=== PATIENT | male | born 1950 | race Caucasian/White ===

== ENCOUNTER 2021-03-23 02:04 | Inpatient (IN) ==
[2021-03-23] MEDS ORDERED: dilTIAZem HCl 5 MG/ML 5 ML VIAL IV STA (02:29)
--- NOTE | 2021-03-23 02:44 | Emergency Department Note ---
Impression & Plan Atrial flutter with rapid ventricular response Admission to the [facility] ED Provider Note NAME: SCOTTY DILLON AGE: 70 SEX: M ARRIVES VIA: Walk-In INFORMANT: Patient ED PROVIDER(S): Pratibha Mitchell DO CHIEF COMPLAINT: Rapid pulse and nausea PLAN: Disposition: Admission to the [facility] Condition: Stable MEDICAL DECISION MAKING: This is a 70-year-old male patient who presents to the emergency department with a rapid pulse and nausea. She was noted to be in atrial flutter with a rapid ventricular response. The patient was given a dose of IV Cardizem which seemed to control the patient's rate. Laboratory studies were obtained. Chest x-ray was performed and was unremarkable. Patient's nausea was well controlled. I discussed the case with the [facility] and they will evaluate for further management. Triage Nursing notes reviewed and agree with them. Vital Signs: reviewed and remarkable for tachycardia Differential diagnosis: Cardiac dysrhythmia, electrolyte abnormality, cardiac ischemia ER treatment provided: IV Cardizem, IV Zofran Diagnostics interpreted by me: ECG: Atrial flutter at a rate of 116 with PVCs. There is no ST segment elevation or signs of ischemia. QTC is 386 ms. Cardiac Monitoring: None Laboratory studies: See below Imaging studies: As per my interpretation Chest x-ray: No acute pulmonary infiltrates or consolidations HPI: 70/M arrives for evaluation of palpitations. The patient states that he awoke around 1:15 AM with significant nausea and rapid pulse. Patient initially thought that his blood sugar might be low but it was 90. Patient has a very remote history of atrial flutter from approximately 20 years ago where he was hospitalized for approximately 4 days of medications and then had to be cardioverted. Patient denies anything out of the ordinary over the past couple days which could have led to this. ROS: See above HPI for pertinent positives & negatives. A total of 10 systems reviewed and were otherwise negative. PAST MEDICAL HISTORY:Type 2 diabetes; one other previous episode of A. fib with RVR that required cardioversion PAST SURGICAL HISTORY:See Below FAMILY HISTORY:See Below SOCIAL HISTORY:See Below HOME MEDICATIONS:See Below ALLERGIES:See Below VITALS:See Below PHYSICAL EXAMINATION: HEENT: Head - normocephalic and atraumatic. Pupils are equal, round, and reactive to light. Extraocular eye muscles are intact, and sclera are anicteric. Nose - moist nasal mucosa without discharge. Mouth - moist buccal mucosa. Oropharynx is nonerythematous and there is no tonsillar exudate or edema noted. Neck: Supple; no JVD, nuchal rigidity, cervical lymphadenopathy, or auscultated bruits. Heart: Irregularly irregular rhythm with a tachycardic rate Lungs: Clear to auscultation bilaterally with no wheezes, rales, or rhonchi. Abdomen: Soft, completely nontender, nondistended, with good bowel sounds. There are no palpable pulsatile masses or hepatosplenomegaly. There is no guarding, rigidity, or rebound noted. Extremities: No evidence of cyanosis, clubbing, or edema. There are easily palpable peripheral pulses. Skin: warm and dry with good turgor and no rashes. ED COURSE: Times/Reassessments: 0220: The patient was evaluated in room B7. A complete history and physical was performed. An order was placed for continuous cardiac monitoring. The patient is in in a flutter at a rate of 122. An IV lock was initiated and labs are drawn as above. A twelve-lead EKG was obtained. The patient was given 20 mg of IV Cardizem. A portable chest x-ray was perform ed. I discussed the case with the [facility] hospitalist and they will evaluate for further management. I have personally spent greater than 30 minutes of critical care time in the direct management of this patient. This includes bedside care, interpretation of diagnostic studies, and testing, discussion with consultants, patient, and family members, and other required patient management activities. This 30 minutes is in excess of all separately billable procedures. Pratibha Mitchell DO Past Med/Surg History Medical History (Updated 03/23/21 @ 22:12 by Pratibha Mitchell DO) Diabetes mellitus, type 2 Hearing loss in left ear History of atrial fibrillation (~04/26/10) hx of 11 yrs ago--had cardiac cath/RANDAL and cardioversion (successful) no further issues with a-fib History of gout Hyperlipidemia Ocular migraine Surgical History History of cardiac cath (~04/26/10) @ [facility] d/t a-fib--no stents placed, went for RANDAL and then cardioversion right after History of cardioversion (~04/26/10) History of colonoscopy with polypectomy History of root canal procedure History of transesophageal echocardiography (RANDAL) for a-fib Family History Father Family history of diabetes mellitus Other No family history of adverse response to anesthesia Social History (System 01/23/20 @ 09:29 by Vickie Rodriguez) Smoking Status: Never smoker Second Hand Exposure: Yes (parents smoked); Hx Alcohol Use: Yes Alcohol type: beer Hx Substance Use: No Preferred Language: Thai Communication Ability: Effective Lab Intern Required: No Beliefs That Will Affect Care: None Current Living Situation: Spouse Feels Safe at Home: Yes Assistive Devices: Glasses Allergies Allergies Allergy/AdvReac Type Severity Reaction Status Date / Time No Known Allergies Allergy Verified 03/23/21 02:26 Home Meds Home Medications Medication Instructions Recorded Confirmed aspirin 81 mg chewable tablet 81 mg PO QA 09/10/20 03/23/21 (Aspirin Childrens) atorvastatin 20 mg tablet 20 mg PO QAM 09/10/20 03/23/21 empagliflozin 25 mg tablet 12.5 mg PO QAM 09/10/20 03/23/21 (Jardiance) insulin glargine 100 unit/mL 28 unit SUBCUT HS 09/10/20 03/23/21 subcutaneous solution (Lantus U-100 Insulin) lisinopril 10 mg tablet 10 mg PO QAM 09/10/20 03/23/21 metformin 500 mg tablet 500 mg PO BID 09/10/20 03/23/21 multivitamin 1 tab PO QAM 09/10/20 03/23/21 Previous Rx's Medication Instructions Recorded diltiazem HCl 30 mg tablet 30 mg PO TID #90 tab 03/23/21 diltiazem HCl 30 mg tablet 30 mg PO TID 30 Days #90 tab 03/23/21 rivaroxaban 20 mg tablet (Xarelto) 20 mg PO DAILY #30 tab 03/23/21 rivaroxaban 20 mg tablet (Xarelto) 20 mg PO DAILY #30 tab 03/23/21 Results & Data (ED) Vital Signs Vital Signs - 24 hr 03/23/21 02:06 03/23/21 02:30 03/23/21 02:40 Temperature 36.7 C Temperature Source Temporal Artery Scan Pulse Rate 128 H 125 H 99 H Pulse Rate from SpO2 Sensor 123 H 102 H Respiratory Rate 19 15 13 Respiratory Effort / Characteristics Non-Labored Respiratory Depth Normal Blood Pressure 139/98 128/82 95/75 L Blood Pressure [Right Arm] Blood Pressure Mean 111 97 81 Blood Pressure Mean [Right Arm] Pulse Oximetry 99 98 95 Oxygen Delivery Method Room Air Sepsis Recent Fever Within 48 Hours No Sepsis New/Unexplained Change in Mental Status N/A Sepsis Action Taken by Nursing No Action Required 03/23/21 02:42 03/23/21 02:44 03/23/21 02:50 Temperature Temperature Source Pulse Rate 93 H Pulse Rate from SpO2 Sensor 92 H Respiratory Rate 22 Respiratory Effort / Characteristics Respiratory Depth Blood Pressure 107/72 Blood Pressure [Right Arm] 109/76 Blood Pressure Mean 83 Blood Pressure Mean [Right Arm] 87 Pulse Oximetry 95 Oxygen Delivery Method Room Air Sepsis Recent Fever Within 48 Hours Sepsis New/Unexplained Change in Mental Status Sepsis Action Taken by Nursing 03/23/21 03:00 03/23/21 03:10 03/23/21 03:20 Temperature Temperature Source Pulse Rate 98 H 93 H 103 H Pulse Rate from SpO2 Sensor 96 H 92 H 101 H Respiratory Rate 16 17 16 Respiratory Effort / Characteristics Respiratory Depth Blood Pressure 118/74 108/69 119/79 Blood Pressure [Right Arm] Blood Pressure Mean 88 82 92 Blood Pressure Mean [Right Arm] Pulse Oximetry 94 94 98 Oxygen Delivery Method Room Air Room Air Sepsis Recent Fever Within 48 Hours Sepsis New/Unexplained Change in Mental Status Sepsis Action Taken by Nursing 03/23/21 03:30 03/23/21 04:00 03/23/21 04:30 Temperature Temperature Source Pulse Rate 103 H 98 H 113 H Pulse Rate from SpO2 Sensor 100 H 102 H 118 H Respiratory Rate 15 12 17 Respiratory Effort / Characteristics Respiratory Depth Blood Pressure 122/79 137/90 149/86 H Blood Pressure [Right Arm] Blood Pressure Mean 93 105 107 Blood Pressure Mean [Right Arm] Pulse Oximetry 97 93 97 Oxygen Delivery Method Room Air Room Air Sepsis Recent Fever Within 48 Hours Sepsis New/Unexplained Change in Mental Status Sepsis Action Taken by Nursing Laboratory Data Result diagrams: 03/23/21 02:15 03/23/21 09:45 Lab Results 03/23/21 03/23/21 03/23/21 Range/Units 02:15 02:15 03:25 WBC 9.48 (4.8-10.8) K/uL RBC 4.86 (4.7-6.1) M/uL Hgb 15.8 (14.0-18.0) g/dL Hct 46.7 (42-52) % MCV 96.1 (80-100) fL MCH 32.5 (25-34) pg MCHC 33.8 (32-36) g/dL RDW Std Deviation 46.1 (36.4-46.3) fL RDW Coeff of Kyra 13.2 (11.5-14.5) % Plt Count 201 (130-400) K/uL MPV 10.3 (7.4-10.4) fL Immature Gran % (Auto) 0.2 % Neut % (Auto) 63.4 % Lymph % (Auto) 26.8 % [place] % (Auto) 7.1 % Eos % (Auto) 2.3 % Baso % (Auto) 0.2 % Neut # (Auto) 6.01 (1.4-6.5) K/uL Lymph # (Auto) 2.54 (1.2-3.4) K/uL [place] # (Auto) 0.67 H (0.11-0.59) K/uL Eos # (Auto) 0.22 (0-0.5) K/uL Baso # (Auto) 0.02 (0-0.2) K/uL Immature Gran # (Auto) 0.02 (0.00-0.02) K/uL Sodium 137 (136-145) mmol/L Potassium 4.2 (3.5-5.1) mmol/L Chloride 107 (98-107) mmol/L Carbon Dioxide 28 (21-32) mmol/L Anion Gap 2.0 L (3-11) BUN 23 H (7-18) mg/dl Creatinine 1.36 (0.6-1.4) mg/dl Est Cr Clr Drug Dosing 60.4 ml/min Est GFR ( Amer) 60.7 ml/min Est GFR (Non-Af Amer) 52.3 ml/min BUN/Creatinine Ratio 16.6 (10-20) Glucose 90 (70-99) mg/dl Calcium 9.1 (8.5-10.1) mg/dl Magnesium 2.4 (1.8-2.4) mg/dl Total Bilirubin 0.5 (0.2-1) mg/dl AST 15 (15-37) U/L ALT 28 (12-78) U/L Alkaline Phosphatase 52 (45-117) U/L Troponin I < 0.015 (0-0.045) ng/ml Total Protein 7.1 (6.4-8.2) gm/dl Albumin 3.9 (3.4-5.0) gm/dl Globulin 3.2 (2.5-4.0) gm/dl Albumin/Globulin Ratio 1.2 (0.9-2) TSH 0.745 (0.300-4.500) uIu/ml COVID-19 Eval Order Covid19 at [facility] SARS-CoV-2 (PCR) (Negative) 03/23/21 Range/Units 03:25 WBC (4.8-10.8) K/uL RBC (4.7-6.1) M/uL Hgb (14.0-18.0) g/dL Hct (42-52) % MCV (80-100) fL MCH (25-34) pg MCHC (32-36) g/dL RDW Std Deviation (36.4-46.3) fL RDW Coeff of Kyra (11.5-14.5) % Plt Count (130-400) K/uL MPV (7.4-10.4) fL Immature Gran % (Auto) % Neut % (Auto) % Lymph % (Auto) % [place] % (Auto) % Eos % (Auto) % Baso % (Auto) % Neut # (Auto) (1.4-6.5) K/uL Lymph # (Auto) (1.2-3.4) K/uL [place] # (Auto) (0.11-0.59) K/uL Eos # (Auto) (0-0.5) K/uL Baso # (Auto) (0-0.2) K/uL Immature Gran # (Auto) (0.00-0.02) K/uL Sodium (136-145) mmol/L Potassium (3.5-5.1) mmol/L Chloride (98-107) mmol/L Carbon Dioxide (21-32) mmol/L Anion Gap (3-11) BUN (7-18) mg/dl Creatinine (0.6-1.4) mg/dl Est Cr Clr Drug Dosing ml/min Est GFR ( Amer) ml/min Est GFR (Non-Af Amer) ml/min BUN/Creatinine Ratio (10-20) Glucose (70-99) mg/dl Calcium (8.5-10.1) mg/dl Magnesium (1.8-2.4) mg/dl Total Bilirubin (0.2-1) mg/dl AST (15-37) U/L ALT (12-78) U/L Alkaline Phosphatase (45-117) U/L Troponin I (0-0.045) ng/ml Total Protein (6.4-8.2) gm/dl Albumin (3.4-5.0) gm/dl Globulin (2.5-4.0) gm/dl Albumin/Globulin Ratio (0.9-2) TSH (0.300-4.500) uIu/ml COVID-19 Eval Order SARS-CoV-2 (PCR) NEGATIVE (Negative) Administered Medications Discontinued Medications Aspirin (Aspirin 81 Mg Ectab) 81 mg PO [facility] Stop: 04/22/21 08:59 Last Admin: 03/23/21 09:14 Dose: 81 mg Documented by: [id number] Atorvastatin Calcium (Atorvastatin 20 Mg Tab) 20 mg PO [facility] Stop: 04/22/21 08:59 Last Admin: 03/23/21 09:14 Dose: 20 mg Documented by: [id number] Diltiazem HCl (Diltiazem Hcl 5 Mg/Ml 5 Ml Vial) 20 mg IV NOW STA Stop: 03/23/21 02:30 Last Admin: 03/23/21 02:36 Dose: 20 mg Documented by: [id number] Cosigned by: [id number] Diltiazem HCl (Diltiazem Hcl 30 Mg Tab) 30 mg PO NOW STA Stop: 03/23/21 05:29 Last Admin: 03/23/21 05:37 Dose: 30 mg Documented by: [id number] Diltiazem HCl (Diltiazem Hcl 30 Mg Tab) 30 mg PO TID SAMANTHA Stop: 04/22/21 10:59 Last Admin: 03/23/21 12:01 Dose: 30 mg Documented by: [id number] Enoxaparin Sodium (Enoxaparin 100 Mg/1ml Syr) 90 mg SQ Q12 SAMANTHA Stop: 04/22/21 07:29 Last Admin: 03/23/21 09:13 Dose: 90 mg Documented by: [id number] Sodium Chloride (Nss 1000ml) 500 mls @ 999 mls/hr IV .Q31M ONE Stop: 03/23/21 04:33 Last Infusion: 03/23/21 04:45 Dose: 0 mls/hr Documented by: [id number] Admin: 03/23/21 04:10 Dose: 999 mls/hr Documented by: [id number] Sodium Chloride (Nss) 500 mls @ 125 mls/hr IV .Q4H SAMANTHA Stop: 04/22/21 04:14 Last Admin: 03/23/21 12:01 Dose: 125 mls/hr Documented by: [id number] Infusion: 03/23/21 12:01 Dose: 125 mls/hr Documented by: [id number] Admin: 03/23/21 09:14 Dose: 125 mls/hr Documented by: [id number] Infusion: 03/23/21 08:45 Dose: 125 mls/hr Documented by: [id number] Admin: 03/23/21 04:45 Dose: 125 mls/hr Documented by: [id number] Miscellaneous (Jardiance: Order Awaiting Action) 1 ea N/A QS SAMANTHA Stop: 04/22/21 07:59 Last Admin: 03/23/21 07:29 Dose: Not Given Documented by: [id number] Ondansetron HCl (Ondansetron Inj 2 Mg/Ml 2 Ml Vial) 4 mg IV NOW STA Stop: 03/23/21 02:47 Last Admin: 03/23/21 06:42 Dose: Not Given Documented by: [id number] Discharge Plan Visit Data Chief Complaint: Arrhythmia/Palpitations Stated Complaint: FAST PULSE,NAUSEA,FLUSHED ED Provider: Pratibha Mitchell Discharge Problem: Atrial flutter with rapid ventricular response Patient Disposition: Admitted As Inpatient Discharge Instructions Interventions: ED Discharge Assessment Last Done: 03/23/21 06:00
[2021-03-23] MEDS ORDERED: ONDANSETRON INJ 2 MG/ML 2 ML VIAL IV STA (02:46)
[2021-03-23 02:49] LABS: Basophils # (auto) 0.02 K/uL (0-0.2); Basophils % (auto) 0.2 %; Eosinophils # (auto) 0.22 K/uL (0-0.5); Eosinophils % (auto) 2.3 %; Hematocrit (blood only) 46.7 % (42-52); Hemoglobin 15.8 g/dL (14.0-18.0); Immature Granulocytes # (auto) 0.02 K/uL (0.00-0.02); Immature Granulocytes % (auto) 0.2 %; Lymphocytes # (auto) 2.54 K/uL (1.2-3.4); Lymphocytes % (auto) 26.8 %; Mean Corpuscular Hemoglobin 32.5 pg (25-34); Mean Corpuscular Hgb Conc 33.8 g/dL (32-36); Mean Corpuscular Volume 96.1 fL (80-100); Mean Platelet Volume 10.3 fL (7.4-10.4); Monocytes # (auto) 0.67 K/uL (0.11-0.59); Monocytes % (auto) 7.1 %; Neutrophils # (auto) 6.01 K/uL (1.4-6.5); Neutrophils % (auto) 63.4 %; Platelet Count 201 K/uL (130-400); RDW Coefficient of Variation 13.2 % (11.5-14.5); RDW Standard Deviation 46.1 fL (36.4-46.3); Red Blood Count 4.86 M/uL (4.7-6.1); White Blood Count 9.48 K/uL (4.8-10.8)
[2021-03-23 02:57] LABS: Alanine Aminotransferase 28 U/L (12-78); Albumin Level 3.9 gm/dl (3.4-5.0); Aspartate Aminotransferase 15 U/L (15-37); BUN Creatinine Ratio 16.6 (10-20); Blood Urea Nitrogen 23 mg/dl (7-18); Calcium 9.1 mg/dl (8.5-10.1); Carbon Dioxide 28 mmol/L (21-32); Chloride 107 mmol/L (98-107); Creatinine Clr Calc Pharmacy 60.4 ml/min; Est GFR (African American) 60.7 ml/min; Est GFR (Non-African American) 52.3 ml/min; Glucose 90 mg/dl (70-99); Magnesium 2.4 mg/dl (1.8-2.4); Potassium 4.2 mmol/L (3.5-5.1); Sodium 137 mmol/L (136-145)
[2021-03-23 03:08] LABS: Albumin Globulin Ratio 1.2 (0.9-2); Alkaline Phosphatase 52 U/L (45-117); Bilirubin,Total 0.5 mg/dl (0.2-1); Globulin 3.2 gm/dl (2.5-4.0); Thyroid Stimulating Hormone 0.745 uIu/ml (0.300-4.500); Total Protein 7.1 gm/dl (6.4-8.2); Troponin I < 0.015 ng/ml (0-0.045)
[2021-03-23] MEDS ORDERED: SODIUM CHLORIDE 0.9% 1000ML 500 ML IV ONE (04:03)
[2021-03-23] MEDS: SODIUM CHLORIDE 0.9% 500 ML IV SCH ×3 (04:45→12:01)
--- NOTE | 2021-03-23 05:17 | History & Physical Report ---
Date of Service March 23, 2021 Assessment & Plan (1) Atrial flutter: Plan: -Mr. Rubio is a 70 yo gentleman who is being admitted for management of atrial flutter. - Aflutter demonstrated on EKG - HR improved with Diltiazem 20mg IV - continue oral Diltazem 30mg q6 - etiology: uncertain. patient does not appear to be ill with an infection. TSH was not deranged. K was > 4, Mag was > 2. Cr of 1.36 (baseline Cr unknown) and mildly elevated BUN of 23 suggestive of mild dehydration. Patient did consume 2 alcoholic drinks earlier this evening, but this is not widely changed from baseline of 1 beer per night. - [id number] score of 2: will initiate anticoagulation with Lovenox 1mg/kg q12 to mitigate increased transient stroke risk - echo ordered - cards consult placed (2) Diabetes mellitus, type 2: Plan: - blood glucose 90 on admission - BG checks ACHS - continue home Lantus insulin and Jardiance - hold home metformin - continue high intensity statin - hold PIERCE while using Cardizem (allow for more blood pressure room when controlling HR) (3) Elevated BUN: Plan: - mildly elevated at 23 - suggestive of mild dehydration - 1 liter of NSS given in ED - trend BMP DVT ppx: Lovenox Diet: Heart healthy, carb consistent Dispo: Med/tele CodE: DNR/DNI, I discussed with jass cosme History of Present Illness Primary Care Provider: Katerine Montano PA-C Mr. Rubio is a 70 yo M who presented to the [facility] ED for evaluation of rapid heart beat. Leading up to this admission, he was in his usual state of health. He went to bed and awoke at 1:30am with a rapid heart rate. He did not experience any associated chest pain or SOB. He endorses a history of atrial flutter 20 years ago. He was hospitalized here, at [facility], for this problem. After about 4 days of medical therapy - he was ultimatley cardioverted. He briefly followed with a civil engineer's aide for a period of time afterwards, but eventually was discharged from their clinic, as he had been stable (without recurrent episodes) since his cardioversion. He is not on any rate control agent. He is not on a blood thinner. He denied any recent tick bites. He did have two alcoholic beverages at an event earlier this evening with his . Social Hx: Most of his medical care is via the [facility]. 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 He drinks ~ 1 beer per night (but not necessarily every night). In the ED, he was afebrile with a HR of 128. His BP was normal at 137/90 and he was breathing well on room air. His CBC was normal. K was 4.2, Mag was 2.4. Cr 1.36, BUN 23. TSH at 0.7. Trop undetectable. COVID 19 neg. EKG showing Aflutter at 111 bpm with occasional PVCs. CXR appears unremakable. He was given one dose of diltiazem 20mg, IV, 1 liter of NSS and a dose of zofran. Heart rate improved to 98 bpm. Allergies Allergy/AdvReac Type Severity Reaction Status Date / Time No Known Allergies Allergy Verified 03/23/21 02:26 Home Medications Medication Instructions Recorded Confirmed Type aspirin 81 mg chewable tablet 81 mg PO QAM 09/10/20 03/23/21 History (Aspirin Childrens) atorvastatin 20 mg tablet 20 mg PO QAM 09/10/20 03/23/21 History empagliflozin 25 mg tablet 12.5 mg PO QAM 09/10/20 03/23/21 History (Jardiance) insulin glargine 100 unit/mL 28 unit SUBCUT HS 09/10/20 03/23/21 History subcutaneous solution (Lantus U-100 Insulin) lisinopril 10 mg tablet 10 mg PO QAM 09/10/20 03/23/21 History metformin 500 mg tablet 500 mg PO BID 09/10/20 03/23/21 History multivitamin 1 tab PO QAM 09/10/20 03/23/21 History diltiazem HCl 30 mg tablet 30 mg PO TID #90 tab 03/23/21 Rx diltiazem HCl 30 mg tablet 30 mg PO TID 30 Days #90 tab 03/23/21 Rx rivaroxaban 20 mg tablet (Xarelto) 20 mg PO DAILY #30 tab 03/23/21 Rx rivaroxaban 20 mg tablet (Xarelto) 20 mg PO DAILY #30 tab 03/23/21 Rx Past Med/Surg History Medical History (Updated 03/23/21 @ 22:12 by Pratibha Mitchell DO) Diabetes mellitus, type 2 Hearing loss in left ear History of atrial fibrillation (~04/26/10) hx of 11 yrs ago--had cardiac cath/RANDAL and cardioversion (successful) no further issues with a-fib History of gout Hyperlipidemia Ocular migraine Surgical History History of cardiac cath (~04/26/10) @ [facility] d/t a-fib--no stents placed, went for RANDAL and then cardioversion right after History of cardioversion (~04/26/10) History of colonoscopy with polypectomy History of root canal procedure History of transesophageal echocardiography (RANDAL) for a-fib Family History Father Family history of diabetes mellitus Other No family history of adverse response to anesthesia Social History (System 01/23/20 @ 09:29 by Vickie Rodriguez) Smoking Status: Never smoker Second Hand Exposure: Yes (parents smoked); Hx Alcohol Use: Yes Alcohol type: beer Hx Substance Use: No Preferred Language: Nigerian Communication Ability: Effective Tech Brazer Tester Required: No Beliefs That Will Affect Care: None Current Living Situation: Spouse Feels Safe at Home: Yes Assistive Devices: Glasses Review of Systems Respiratory: no dyspnea Cardiovascular: no chest pain Physical Exam Constitutional: WD/WN, vitals as above cooperative; no acute distress Eyes: PERRL, conjunctivae normal, anicteric sclerae ENMT: external ear and nose normal, oropharynx normal Neck: normal visual inspection and trachea midline Respiratory: normal respiratory effort, lungs clear to auscultation no cough Cardiovascular: Rate/Rhythm: + tachycardic; + abnormal rhythm Heart Sounds: normal S1 and normal S2 Vessels: normal carotid upstroke Extremities: no pedal edema Gastrointestinal (Abdomen): normal bowel sounds, soft, nontender, no hepatosplenomegaly Musculoskeletal: Head/Neck/Chest: normocephalic and head atraumatic Skin: no rashes, warm and dry Neurologic: moves all extremities Psychiatric: A+Ox3, euthymic affect Results & Data Results & Data ([facility]) Vital Signs (Past 12 Hours) Vital Signs Temp Pulse Resp BP BP Pulse Ox 03/23/21 04:00 98 H 12 137/90 93 09/04/21 03:30 103 H 15 122/79 97 03/23/21 03:20 103 H 16 119/79 98 03/23/21 03:10 93 H 17 108/69 94 03/23/21 03:00 98 H 16 118/74 94 03/23/21 02:50 93 H 22 107/72 95 03/23/21 02:44 109/76 03/23/21 02:40 99 H 13 95/75 L 95 03/23/21 02:30 125 H 15 128/82 98 03/23/21 02:06 36.7 C 128 H 19 139/98 99 Supervising Physician Co-Signing Physician Notes Attending addendum: I have physically seen this patient, have supervised the medical residents activities, and agree with the H&P unless as otherwise noted. Assessment and Plan: Atrial flutter with RVR- The patient will be admitted to telemetry for serial cardiac enzymes, serial EKG's, cardiac rhythm monitoring and a 2-D echocardiogram with Dopplers. Improved rate control after diltiazem 20 mg IV given by the ED Placed on diltiazem 30 mg p.o. every 6 hours. Diltiazem 10 mg IV every 4 hours as needed heart rate greater than 110 Lovenox as noted Consult cardiology Diabetes mellitus- Place on Accu-Cheks before meals and at bedtime with NovoLog coverage per scale Continue Lantus insulin Hold Jardiance Remaining orders and notations as noted Resident Activity Tracking Resident Involvement: Resident Care Provided Care Provided: Adult Hospital Medicine
[2021-03-23] MEDS ORDERED: dilTIAZem HCL 30 MG TAB PO STA (05:28)
[2021-03-23] MEDS ORDERED: GLUCAGON FOR INJ 1 MG VIAL SQ PRN (05:47)
[2021-03-23] MEDS ORDERED: CARBOHYDRATES FOR HYPOGLYCEMIA PO PRN (05:47)
[2021-03-23] MEDS ORDERED: GLUCOSE 40% GEL 15 GM TUBE PO PRN (05:47)
[2021-03-23] MEDS ORDERED: DEXTROSE 50% 50 ML SYRINGE IV PRN (05:47)
[2021-03-23] MEDS ORDERED: GLUCOSE 10 TABS/TUBE PO PRN (05:47)
[2021-03-23] MEDS ORDERED: ENOXAPARIN 1 MG/KG SQ SCH (06:23)
[2021-03-23] MEDS ORDERED: ACETAMINOPHEN 325 MG TAB PO PRN (06:23)
[2021-03-23] MEDS ORDERED: POLYETHYLENE (MIRALAX) 17 GM PACK PO PRN (06:23)
[2021-03-23] MEDS ORDERED: ONDANSETRON INJ 2 MG/ML 2 ML VIAL IV PRN (06:23)
--- NOTE | 2021-03-23 06:45 | Hospitalist Progress Note ---
Date of Service March 23, 2021 Assessment & Plan (1) Atrial flutter: Plan: -Mr. Rubio is a 70 yo gentleman who is being admitted for management of atrial flutter. - Aflutter demonstrated on EKG - HR improved with Diltiazem 20mg IV - continue oral Diltazem 30mg q6 - etiology: uncertain. patient does not appear to be ill with an infection. TSH was not deranged. K was > 4, Mag was > 2. Cr of 1.36 (baseline Cr unknown) and mildly elevated BUN of 23 suggestive of mild dehydration. Patient did consume 2 alcoholic drinks earlier this evening, but this is not widely changed from baseline of 1 beer per night. - [id number] score of 2: will initiate anticoagulation with Lovenox 1mg/kg q12 to mitigate increased transient stroke risk - echo ordered - cards consult placed (2) Diabetes mellitus, type 2: Plan: - blood glucose 90 on admission - BG checks ACHS - continue home Lantus insulin and Jardiance - hold home metformin - continue high intensity statin - hold PIERCE while using Cardizem (allow for more blood pressure room when controlling HR) (3) Elevated BUN: Plan: - mildly elevated at 23 - suggestive of mild dehydration - 1 liter of NSS given in ED - trend BMP DVT ppx: Lovenox Diet: Heart healthy, carb consistent Dispo: Med/tele CodE: DNR/DNI, I discussed with jass cosme Admission and Anticipated Discharge Date Admission Date: March 23, 2021 Results & Data Results & Data ([facility]) Vital Signs (Past 12 Hours) Vital Signs Temp Pulse Pulse Resp BP BP Pulse Ox 03/23/21 06:23 36.9 C 93 H 88 20 145/84 H 99 03/23/21 06:00 36.7 C 99 H 16 137/75 98 03/23/21 05:30 100 H 10 L 141/93 H 97 03/23/21 05:00 99 H 12 133/88 95 03/23/21 04:30 113 H 17 149/86 H 97 03/23/21 04:00 98 H 12 137/90 93 03/23/21 03:30 103 H 15 122/79 97 03/23/21 03:20 103 H 16 119/79 98 03/23/21 03:10 93 H 17 108/69 94 03/23/21 03:00 98 H 16 118/74 94 03/23/21 02:50 93 H 22 107/72 95 03/23/21 02:44 109/76 03/23/21 02:40 99 H 13 95/75 L 95 03/23/21 02:30 125 H 15 128/82 98 03/23/21 02:06 36.7 C 128 H 19 139/98 99
--- NOTE | 2021-03-23 07:04 | XRay Report ---
XR chest 1V portable CLINICAL HISTORY: Dysrhythmia COMPARISON STUDY: Chest radiograph April 25, 2010. FINDINGS: Lung volumes are normal. Lungs are clear. There is no pneumothorax or pleural effusion. Car diac size is normal. Mediastinal contours are normal. There is no evidence for pulmonary edema. IMPRESSION: No acute cardiopulmonary findings. ACT 112: Negative or not required by law. Electronically signed by: Damir Wilson M.D. 03/23/2021 7:02 AM
[2021-03-23] MEDS ORDERED: ENOXAPARIN 100 MG/1ML SYR SQ SCH (07:30)
[2021-03-23] MEDS ORDERED: ASPIRIN 81 MG ECTAB PO SCH (09:00)
[2021-03-23] MEDS ORDERED: ATORVASTATIN 20 MG TAB PO SCH (09:00)
--- NOTE | 2021-03-23 09:29 | Cardiology Consultation ---
Date of Consultation March 23, 2021 Assessment & Plan (1) Atrial flutter: His current rhythm appears to be in atrial flutter. Overall rate control appears reasonable on his current dose of diltiazem. He recall some of the details from his prior evaluation nearly 20 years ago. He states that he did undergo a transesophageal echocardiogram and cardioversion. He recalls being on some medical therapy that needed to be reduced due to slower heart rates. She has been screened for sleep apnea several times in the past but has never met criteria for this diagnosis. We could consider repeat home screening. He is currently feeling well and appears to have few symptoms associated with the arrhythmia. When he transition to atrial flutter is unclear. He certainly noticed a increase in his heart rate last night, but does not check his heart rate or pulse otherwise. He certainly could have been in atrial flutter for a more prolonged period. It seems unlikely that he will transition back to sinus rhythm on his own. I think we should start him on oral anticoagulation.1 of the novel oral anticoagulants can be used. Either Eliquis 5 mg twice daily or Xarelto 20 mg daily. I think we should plan a RANDAL and cardioversion. Unfortunately, given the timing of his admission this likely cannot be accomplished until next week. If he is ambulatory without symptoms and reasonable rate control I think he could be safely discharged with an outpatient procedure to be scheduled next week. (2) Mitral regurgitation: Noted to have mild regurgitation in 2009. Ogto-au-vziuucez on evaluation today. Will follow this over time. (3) Aortic root dilation: Barely over limit of normal. This can be monitored over time. Continue treatment of hypertension. History of Present Illness Reason for Consultation: Atrial flutter Requesting Physician: Karen Attending Physician: Braxotn Pennington DO History of Present Illness The patient is a 70-year-old gentleman with a remote history of atrial fibrillation versus atrial flutter presented to the emergency room last night with a sense of a rapid heartbeat. It seems that the patient awoke last evening thinking perhaps his blood sugar was low. He had some diffuse symptoms but no significant diaphoresis. He was not aware of any palpitations at that time. He checked his carotid pulse and felt like his heart was going fast and presented to the emergency room for evaluation. He was discovered to be in atrial flutter. The patient states that he has otherwise been feeling well. He did not endorse recent symptoms of dyspnea or any symptoms of chest discomfort. He states that he rarely gets dizzy or lightheaded and has never suffered a syncopal episode. He states that 20 years ago he had a similar episode which required cardioversion. He was not overtly symptomatic at that time. He does not have any home monitoring devices and generally does not take his pulse. Currently claims to be feeling well. He states that he is tired but does not have any dyspnea. He is not aware of any palpitations. No chest pain. He has been up and down to the bathroom without symptoms. Allergies Allergy/AdvReac Type Severity Reaction Status Date / Time No Known Allergies Allergy Verified 03/23/21 02:26 Home Medications Medication Instructions Recorded Confirmed Type aspirin 81 mg chewable tablet 81 mg PO QAM 09/10/20 03/23/21 History (Aspirin Childrens) atorvastatin 20 mg tablet 20 mg PO QAM 09/10/20 03/23/21 History empagliflozin 25 mg tablet 12.5 mg PO QAM 09/10/20 03/23/21 History (Jardiance) insulin glargine 100 unit/mL 28 unit SUBCUT HS 09/10/20 03/23/21 History subcutaneous solution (Lantus U-100 Insulin) lisinopril 10 mg tablet 10 mg PO QAM 09/10/20 03/23/21 History metformin 500 mg tablet 500 mg PO BID 09/10/20 03/23/21 History multivitamin 1 tab PO QAM 09/10/20 03/23/21 History Patient History Medical History (Updated 03/23/21 @ 09:37 by Dariel Mendez MD) Diabetes mellitus, type 2 Hearing loss in left ear History of atrial fibrillation (~04/26/10) hx of 11 yrs ago--had cardiac cath/RANDAL and cardioversion (successful) no further issues with a-fib History of gout Hyperlipidemia Ocular migraine Surgical History History of cardiac cath (~04/26/10) @ [facility] d/t a-fib--no stents placed, went for RANDAL and then cardioversion right after History of cardioversion (~04/26/10) History of colonoscopy with polypectomy History of root canal procedure History of transesophageal echocardiography (RANDAL) for a-fib Family History Father Family history of diabetes mellitus Other No family history of adverse response to anesthesia Social History (System 01/23/20 @ 09:29 by Vickie Rodriguez) Smoking Status: Never smoker Second Hand Exposure: Yes (parents smoked); Hx Alcohol Use: Yes Alcohol type: beer Hx Substance Use: No Preferred Language: Slovenian Communication Ability: Effective Medical Claims Examiner Required: No Beliefs That Will Affect Care: None Current Living Situation: Spouse Feels Safe at Home: Yes Safety Concerns: Feels Safe At This Time Assistive Devices: Glasses Review of Systems Review of Systems: All systems reviewed & are unremarkable except as noted in HPI & below Physical Exam Physical Exam: The patient is alert and oriented. Mood and affect appeared normal. He answered all questions appropriately. HEENT: Pupils are equal and reactive to light and accommodation. Extraocular movements are intact. The sclerae are anicteric. Neuro: Cranial nerves intact Neck: Patient's neck is supple. He has palpable carotid pulses bilaterally without bruits on auscultation. There is no evidence of jugular venous distention. The thyroid is not enlarged. Lungs: Clear to auscultation bilaterally. He has good air movement without use of accessory muscles. No rales wheezes or rhonchi. Cardiac: Heart demonstrates an irregular rate and rhythm. Normal S1 and S2. No murmurs on examination. Pulses: The patient has palpable radial pulses bilaterally that are equal in intensity Extremities: There was no evidence of hypoperfusion. There is no cyanosis or clubbing. There is no edema. Skin: I did not appreciate any rashes on examination today. Results & Data ([facility]) Vital Signs (Past 12 Hours) Vital Signs Temp Pulse Pulse Resp BP BP Pulse Ox 03/23/21 08:19 37.1 C 83 18 111/71 97 03/23/21 06:23 36.9 C 93 H 88 20 145/84 H 99 03/23/21 06:00 36.7 C 99 H 16 137/75 98 03/23/21 05:30 100 H 10 L 141/93 H 97 03/23/21 05:00 99 H 12 133/88 95 03/23/21 04:30 113 H 17 149/86 H 97 03/23/21 04:00 98 H 12 137/90 93 03/23/21 03:30 103 H 15 122/79 97 03/23/21 03:20 103 H 16 119/79 98 03/23/21 03:10 93 H 17 108/69 94 03/23/21 03:00 98 H 16 118/74 94 03/23/21 02:50 93 H 22 107/72 95 03/23/21 02:44 109/76 03/23/21 02:40 99 H 13 95/75 L 95 03/23/21 02:30 125 H 15 128/82 98 03/23/21 02:06 36.7 C 128 H 19 139/98 99 Laboratory Results Abnormal Lab Results 03/23/21 03/23/21 03/23/21 02:15 02:15 03:25 WBC 9.48 RBC 4.86 Hgb 15.8 Hct 46.7 MCV 96.1 MCH 32.5 MCHC 33.8 RDW Std Deviation 46.1 RDW Coeff of Kyra 13.2 Plt Count 201 MPV 10.3 Immature Gran % (Auto) 0.2 Neut % (Auto) 63.4 Lymph % (Auto) 26.8 [place] % (Auto) 7.1 Eos % (Auto) 2.3 Baso % (Auto) 0.2 Neut # (Auto) 6.01 Lymph # (Auto) 2.54 [place] # (Auto) 0.67 H Eos # (Auto) 0.22 Baso # (Auto) 0.02 Immature Gran # (Auto) 0.02 Sodium 137 Potassium 4.2 Chloride 107 Carbon Dioxide 28 Anion Gap 2.0 L BUN 23 H Creatinine 1.36 Est Cr Clr Drug Dosing 60.4 Est GFR ( Amer) 60.7 Est GFR (Non-Af Amer) 52.3 BUN/Creatinine Ratio 16.6 Glucose 90 POC Glucose Calcium 9.1 Magnesium 2.4 Total Bilirubin 0.5 AST 15 ALT 28 Alkaline Phosphatase 52 Troponin I < 0.015 Total Protein 7.1 Albumin 3.9 Globulin 3.2 Albumin/Globulin Ratio 1.2 TSH 0.745 COVID-19 Eval Order Covid19 at [facility] SARS-CoV-2 (PCR) 03/23/21 03/23/21 03:25 07:40 WBC RBC Hgb Hct MCV MCH MCHC RDW Std Deviation RDW Coeff of Kyra Plt Count MPV Immature Gran % (Auto) Neut % (Auto) Lymph % (Auto) [place] % (Auto) Eos % (Auto) Baso % (Auto) Neut # (Auto) Lymph # (Auto) [place] # (Auto) Eos # (Auto) Baso # (Auto) Immature Gran # (Auto) Sodium Potassium Chloride Carbon Dioxide Anion Gap BUN Creatinine Est Cr Clr Drug Dosing Est GFR ( Amer) Est GFR (Non-Af Amer) BUN/Creatinine Ratio Glucose POC Glucose 80 Calcium Magnesium Total Bilirubin AST ALT Alkaline Phosphatase Troponin I Total Protein Albumin Globulin Albumin/Globulin Ratio TSH COVID-19 Eval Order SARS-CoV-2 (PCR) NEGATIVE Diagnostic Findings Chest x-ray obtained at the time admission was normal Echocardiogram obtained today revealed preserved LV systolic function. Mild to moderate mitral regurgitation. Mild aortic root dilation. ECG Additional Comments: Obtained the time admission revealed atrial flutter with variable ventricular response PG Care Time/CCT Total # of Minutes Spent Total Time Spent with Patient: Total time spent is greater than 50% in coordination of care (as documented) at patient's floor/unit and/or counseling patient: Coding Level of Care Code 88472 Initial Inpt Care Lvl 3 Diagnoses Atrial flutter I48.92 Mitral regurgitation I34.0 Aortic root dilation I77.810
--- NOTE | 2021-03-23 09:37 | XCELERA ---
[id number]
[2021-03-23 10:29] LABS: BUN Creatinine Ratio 18.8 (10-20); Creatinine Clr Calc Pharmacy 75.4 ml/min; Est GFR (African American) 79.3 ml/min; Est GFR (Non-African American) 68.4 ml/min; Potassium 4.3 mmol/L (3.5-5.1)
[2021-03-23] MEDS ORDERED: dilTIAZem HCL 30 MG TAB PO SCH (11:00)
--- NOTE | 2021-03-23 12:16 | Electrocardiogram Report ---
Test Reason : Blood Pressure : / mmHG Vent. Rate : 116 BPM Atrial Rate : 241 BPM P-R Int : 000 ms QRS Dur : 100 ms QT Int : 278 ms P-R-T Axes : 258 067 065 degrees QTc Int : 386 ms Atrial flutter with variable A-V block with premature ventricular or aberrantly conducted complexes Abnormal ECG When compared with ECG of 28-APR-2010 08:18, Atrial flutter has replaced Sinus rhythm Vent. rate has increased BY [address] now depressed in Inferior leads ST now depressed in Lateral leads Confirmed by Kraig Mendez ([id number]) on 03/23/2021 12:16:11 PM Referred By: REFERRED SELF Confirmed By:Adalberto Mendez
--- NOTE | 2021-03-23 12:17 | Electrocardiogram Report ---
Test Reason : Blood Pressure : / mmHG Vent. Rate : 086 BPM Atrial Rate : 242 BPM P-R Int : 000 ms QRS Dur : 114 ms QT Int : 360 ms P-R-T Axes : 000 045 068 degrees QTc Int : 430 ms Atrial flutter with variable A-V block Low voltage QRS Nonspecific ST abnormality Abnormal ECG When compared with ECG of 23-MAR-2021 02:09, (unconfirmed) ST elevation has replaced ST depression in Inferior leads ST no longer depressed in Anterolateral leads Confirmed by Kraig Mendez ([id number]) on 03/23/2021 12:17:07 PM Referred By: REFERRED SELF Confirmed By:Adalberto Mendez
--- NOTE | 2021-03-23 14:37 | Discharge Summary ---
Date of Service March 23, 2021 Admission HPI Per Admitting Provider Mr. Rubio is a 70 yo M who presented to the [facility] ED for evaluation of rapid heart beat. Leading up to this admission, he was in his usual state of health. He went to bed and awoke at 1:30am with a rapid heart rate. He did not experience any associated chest pain or SOB. He endorses a history of atrial flutter 20 years ago. He was hospitalized here, at [facility], for this problem. After about 4 days of medical therapy - he was ultimatley cardioverted. He briefly followed with a mis specialist for a period of time afterwards, but eventually was discharged from their clinic, as he had been stable (without recurrent episodes) since his cardioversion. He is not on any rate control agent. He is not on a blood thinner. He denied any recent tick bites. He did have two alcoholic beverages at an event earlier this evening with his . Social Hx: Most of his medical care is via the [facility]. 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 He drinks ~ 1 beer per night (but not necessarily every night). In the ED, he was afebrile with a HR of 128. His BP was normal at 137/90 and he was breathing well on room air. His CBC was normal. K was 4.2, Mag was 2.4. Cr 1.36, BUN 23. TSH at 0.7. Trop undetectable. COVID 19 neg. EKG showing Aflutter at 111 bpm with occasional PVCs. CXR appears unremakable. He was given one dose of diltiazem 20mg, IV, 1 liter of NSS and a dose of zofran. Heart rate improved to 98 bpm. Principal Diagnosis Constitutional: WD/WN, vitals as above cooperative; no acute distress Eyes: PERRL, conjunctivae normal, anicteric sclerae ENMT: external ear and nose normal, oropharynx normal Neck: normal visual inspection and trachea midline Respiratory: normal respiratory effort, lungs clear to auscultation no cough Cardiovascular: Rate/Rhythm: + tachycardic; + abnormal rhythm Heart Sounds: normal S1 and normal S2 Vessels: normal carotid upstroke Extremities: no pedal edema Gastrointestinal (Abdomen): normal bowel sounds, soft, nontender, no hepatosplenomegaly Musculoskeletal: Head/Neck/Chest: normocephalic and head atraumatic Skin: no rashes, warm and dry Neurologic: moves all extremities Psychiatric: A+Ox3, euthymic affect Discharge Exam Constitutional: well-appearing, no acute distress CV: tachycardic, irregularly irregular rhythm, no murmur appreciated, extremities well-perfused Resp: CTABL, no wheezes/rales/rhonchi appreciated, no increased work of breathing Neuro: AOx4, no focal neurological deficits appreciated Discharge Data Allergies Allergy/AdvReac Type Severity Reaction Status Date / Time No Known Allergies Allergy Verified 03/23/21 02:26 Consultations 03/23/21 03:47 ED Decision to Admit Stat 03/23/21 06:23 Consult Cardiology Routine Hospital Course (1) Atrial flutter: Atrial flutter Patient was noted to be in atrial flutter with variable AV block on admission. Patient's HR improved with diltiazem IV administration, and patient was anticoagulated with lovenox. Patient was without obvious cause of atrial flutter, as workup was negative for signs of infection, thyroid dysfunction, electrolyte dysfunction, or other derangement. Echo showed normal LV systolic function. Cardiology was consulted and felt patient should undergo cardioversion. However, because patient was admitted on a Thursday, with cardioversion unable to be performed until the following week, Cardiology felt patient was in no immediate danger, and could be safely discharged home with cardioversion planned for the upcoming week. Cardiology recommended anticoagulation with DOAC and oral diltiazem. Patient was discharged on the day of admission with xarelto 20mg daily and diltiazem 30mg three times daily. DM2 Patient's home DM2 regimen was held on admission. BSG was controlled with sliding-scale insulin. Patient's home regimen was restarted upon discharge. (2) Diabetes mellitus, type 2: Total Time Total Time Spent Total Time Spent (In Minutes): <30 Discharge Plan Discharge Items Patient Disposition: Home - Self-Care Reason For Visit: ATRIAL FLUTTER Discharge Diagnosis: Atrial flutter Activity: Resume your previous activity Non-emergency contact: Primary Care Provider and Compliance Associate Call non-emergency contact if: you have any medication questions and your symptoms worsen Follow-up/Referrals: Katerine Montano PA-C [Primary Care Provider] - Diet: Heart Healthy Addtl Attending Provider Instructions: You were admitted to the hospital for rapid heartbeat which is due to atrial flutter. Atrial flutter is a type of abnormal heart rhythm that can increase your heart rate and increase your risk of developing a blood clot. You were deborah ated with medications and evaluated by cardiology, and cardiology has planned a procedure for next week to try to jump-start your heart back into a normal rhythm. We feel it is safe for you to go home and return next week for the procedure. We have started an anticoagulant (blood thinning medication) to prevent blood clots. This has been sent to your pharmacy, and details are below. A discharge summary will be sent to your primary care physician to ensure continuity of care. Please bring this discharge summary with you to your next office appointment so that your provider can review it at that time. Follow-up appointments: Make a follow-up appointment with your PCP within the next week. It is very important that you follow up with them shortly after discharge from the hospital. You will have an appointment next week with cardiology to have the procedure described above. The clinic md associate will reach out to you with that appointment time and date. If you do not hear from them by Thursday afternoon, please call them at [phone] Keep all your follow-up appointments as already scheduled. If you cannot make an appointment, notify your provider. Medications: Your medication list has been reviewed and reconciled upon discharge to ensure accuracy and continuity of care. An updated list of all your medications is i ncluded with your hospital discharge paperwork. Please review this list closely, and make note of any changes. * We sent a new medication called xarelto (rivaroxaban) to your pharmacy. Take xarelto (20mg) one tablet daily. * We sent a new medication called diltiazem to your pharmacy. Take diltiazem (30mg) one tablet three times daily (morning, afternoon, and nighttime). Take your medications as instructed; do not skip a dose of your medicines. Make sure all of your doctors know every medicine you are taking (including xixz-syp-zgjybzg medicines, vitamins, and supplements). Call your primary care provider before taking any new medicines (including qphf-rwj-tqkahos medicines, vitamins, and supplements), because some of these may interact with your current medications, or may make your symptoms worse. Tell your primary care provider if you cannot afford your medications. CONTACT YOUR PRIMARY CARE PROVIDER if you experience any of the following: Worsening palpitations Difficulty following your treatment plan, or difficulty taking medications CALL 911 OR GO TO THE EMERGENCY DEPARTMENT if you experience any of the following: Sudden, severe abdominal pain or nausea/vomiting Severe chest pain, or chest pain that radiates (moves) to your jaw or arm Sudden, severe shortness of breath or difficulty breathing Thank you for allowing us to participate in your care. Pending Studies at Discharge: No Stand-Alone Forms: My Ady[facility], Smoking Cessation Medications and DC Order Prescriptions: New diltiazem HCl 30 mg Tablet 30 mg PO TID 30 Days Qty: 90 RF: 0 Xarelto 20 mg tablet 20 mg PO DAILY Qty: 30 RF: 0 Xarelto 20 mg tablet 20 mg PO DAILY Qty: 30 RF: 1 diltiazem HCl 30 mg tablet 30 mg PO TID Qty: 90 RF: 1 Continued multivitamin Tablet 1 tab PO QAM RF: 0 metformin 500 mg Tablet 500 mg PO BID RF: 0 atorvastatin 20 mg Tablet 20 mg PO QAM RF: 0 Lantus U-100 Insulin 100 unit/mL Solution 28 unit SUBCUT HS RF: 0 lisinopril 10 mg Tablet 10 mg PO QAM RF: 0 aspirin [Aspirin Childrens] 81 mg Tablet,Chewable 81 mg PO QAM RF: 0 Jardiance 25 mg Tablet 12.5 mg PO QAM RF: 0 Discharge Orders: Discharge Order (Routine); Ordered 03/23/21 Ordered By: Nba Vidales Admission Data Admit Date/Time: 03/23/21 04:55 Attending Provider: Braxton Pennington Admit Provider: Marly Salvador Primary Care Provider: Katerine Montano Other Providers: Prasanth Jones ; Dariel Mendez Other Interventions: Discharge Summary Assessment (RN) Last Done: 03/23/21 11:35 Supervising Physician Co-Signing Physician Notes I personally examined the patient and verified all ortiz points of history and exam, discussed case, and agree with decision making with Dr Vidales Feeling fine. No symptoms. Discussed with cardiology. Safe/stable for home. Vitals noted, in general he is awake and alert pleasant no distress. HEENT normocephalic atraumatic mucous membranes moist. Breathing unlabored no accessory muscle use good effort. Skin shows no rashes no pallor or icterus. A flutter/RVRrate improved. Stable for home. Close outpatient follow-up with cardiology. otherwise as above Resident Activity Tracking Resident Involvement: Resident Care Provided Care Provided: Adult Hospital Medicine
--- NOTE | 2021-03-23 16:01 | Billing Data ---
Date of Service March 23, 2021 Coding Level of Care Code D/C DAY MANAGEMENT <30 MINS
[2021-03-23] MEDS ORDERED: INSULIN GLARGINE SOLOSTAR 100 UNITS/ML 3 ML PEN SC SCH (21:00)
--- NOTE | 2021-03-24 00:26 | Billing Data ---
Date of Service March 24, 2021 Coding Level of Care Code 17432 Initial Inpt Care Lvl 3
== END 2021-03-23 13:28 | disposition home or self-care (01) | DRG 310 ==
LOC: ED 02:04 → SUATTDRO 04:55 → 2N 04:55
DX: Z51.81 Encounter for therapeutic drug level monitoring; Z79.4 Long term (current) use of insulin; I77.819 Aortic ectasia, unspecified site; E86.0 Dehydration; Z79.899 Other long term (current) drug therapy; I48.92 Unspecified atrial flutter; E11.9 Type 2 diabetes mellitus without complications; I34.0 Nonrheumatic mitral (valve) insufficiency; I44.39 Other atrioventricular block; Z66 Do not resuscitate; Z77.22 Contact with and (suspected) exposure to environmental tobacco smoke (acute) (chronic); Z79.82 Long term (current) use of aspirin; Z83.3 Family history of diabetes mellitus; R11.0 Nausea; Z86.79 Personal history of other diseases of the circulatory system; E78.5 Hyperlipidemia, unspecified